=== PATIENT | female | born 2000 | race Caucasian/White ===

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

== ENCOUNTER 2023-03-23 19:46 | Outpatient (CLI) | payer OTHER, SELFPAY | END 2023-03-23 23:59 | LOC: LAB.DROPOF 19:46 | PROVIDERS: PCP Student in an Organized Health Care Education/Training Program; Visit Provider Student in an Organized Health Care Education/Training Program | DX: R05.1 Acute cough (principal); R09.81 Nasal congestion; J02.9 Acute pharyngitis, unspecified; J34.89 Other specified disorders of nose and nasal sinuses | CPT/HCPCS: 87070 ==